=== PATIENT | female | born 1980 | race Caucasian/White ===

== ENCOUNTER → 2016-10-10 | Outpatient (CLI) | payer OTHER ==
[~2016-10-10] MED LIST: BUPR300T3 PO; HYDR-2758 PO; IOHEXOL 240 MG/ML 50ML VIAL. PO ONE; IOHEXOL 300 MG/ML 100ML VIAL. IV ONE
--- NOTE | 2016-10-10 12:24 | KCIC ---
Indication: Left lower quadrant pain radiating into left leg. Technique: Axial images and coronal and sagittal reformatted images are provided. Oral contrast and 89 mL of intravenous Omnipaque 300 was administered without complication. No comparison is available. One or more of the following individualized dose reduction techniques were utilized for this examination: 1. Automated exposure control 2. Adjustment of the mA and/or kV according to patient size 3. Use of iterative reconstruction technique Findings: There is minimal atelectasis in the lung bases. There is no pleural effusion. The heart is not enlarged. There is no discrete hepatic lesion. Gallbladder is unremarkable. Spleen is not enlarged. Pancreas and adrenals are unremarkable. Kidneys are symmetrically perfused. Subcentimeter probable cyst in the lower pole of the right kidney is noted, exophytic. Aorta is normal caliber with minimal atheromatous disease in the distal aorta and proximal common iliac arteries. There is no small bowel obstruction. There is no mural thickening. A normal appendix is noted. There is no mural thickening in the colon. Moderate amount of stool is noted in the transverse colon and ascending colon. Bladder is unremarkable. Uterus is absent. Right ovary may be absent. Left ovary is probably present with cyst or follicle measuring 17 mm. A few calcified phleboliths are noted. There is no free pelvic fluid. Bony structures are intact. IMPRESSION: 1. No acute abdominal findings. Electronically signed by: Ayush Jarvis MD (10/10/2016 12:20 PM) [id number]
== END | disposition home or self-care (01) ==
LOC: KCIC CT 10:49
PROVIDERS: ATTEND Obstetrics & Gynecology
DX: R10.32 Left lower quadrant pain (principal)
CPT/HCPCS: 74177; Q9966; Q9967